=== PATIENT | male | born 1955 | race Caucasian/White ===

== ENCOUNTER 2017-08-01 05:38 | Emergency (ER) | payer OTHER ==
--- NOTE | 2017-08-01 20:17 | ER ---
ADMIT: 08/01/2017 RM/LOC: ER [facility] MR#: [id number] [place], [place] [id number] NERI CAMACHO [address] [place] [address] Emergency Room Report SEX: M AGE: 61 : 1955 DATE: 08/01/2017 The patient is a 61-year-old male who underwent colonoscopy with four biopsies, July 29. Showering last night at 10 p.m. when he had rectal urge, then melenic stool, followed by maroon-type loose stool, slept after sleeping aid, and presented some 8 hours later with no pain, lightheadedness, or further bleeding. Exam remarkable for nontoxic, afebrile male with benign abdominal exam. No orthostasis. Hemoglobin 13.6. Normal coags and D-dimer. Negative alcohol, troponin, lipase, lactic acid, and UA. EKG showed sinus rhythm without ST-T or Q-wave change. Chest x-ray showed no free air or other abnormality. CT abdomen unremarkable. The patient received a liter of fluid, Zofran, and tranexamic acid. Discussed the case with Dr. Trivedi who agrees to follow up on Wednesday for repeat hemoglobin. Mario Magana MD/ khloe JOB #: [id number] CC: Mario Magana MD, Attending Physician Abimael Trivedi MD, Family Physician MD Dixie Pierre MD
== END 2017-08-01 07:55 | disposition home or self-care (01) ==
LOC: ER 05:38
DX: K62.5 Hemorrhage of anus and rectum (principal); G47.00 Insomnia, unspecified; Z90.49 Acquired absence of other specified parts of digestive tract; Z90.89 Acquired absence of other organs; Z79.899 Other long term (current) drug therapy; Z98.890 Other specified postprocedural states